=== PATIENT | male | born 1970 | race Caucasian/White ===

== ENCOUNTER 2023-10-08 03:52 | Emergency (ER) | payer SELFPAY ==
[2023-10-08 04:15] LABS: BASOPHILS ABSOLUTE AUTO 0.03 K/uL (0.00-0.20); BASOPHILS PERCENT AUTO 0.2 % (0.0-1.0); EOSINOPHILS ABSOLUTE AUTO 0.16 K/uL (0.00-0.45); EOSINOPHILS PERCENT AUTO 1.3 % (0.0-6.0); HEMATOCRIT 44.5 % (42.0-52.0); HEMOGLOBIN 15.2 g/dL (14.0-18.0); IMMATURE GRAN ABSOLUTE AUTO 0.04 K/uL (0.00-0.05); IMMATURE GRAN PERCENT AUTO 0.3 % (0.0-0.4); LYMPHOCYTES ABSOLUTE AUTO 1.67 K/uL (1.00-4.80); LYMPHOCYTES PERCENT AUTO 13.1 % (24.0-44.0); MEAN CORPUSCULAR HGB CONC 34.2 g/dL (32.0-36.0); MEAN CORPUSCULAR VOLUME 87.8 fL (83.0-99.0); MONOCYTES PERCENT AUTO 5.5 % (0.0-8.0); NEUTROPHILS ABSOLUTE AUTO 10.19 K/uL (1.80-7.70); NEUTROPHILS PERCENT AUTO 79.6 % (41.0-71.0); PLATELET COUNT,PLT 272 K/uL (150-400); RED BLOOD CELL COUNT 5.07 M/uL (4.52-5.90); WHITE BLOOD CELL COUNT,WBC 12.79 K/uL (3.9-11.3)
[2023-10-08] MEDS: Sodium Chloride 0.9% 1,000 ML IV STA (04:20)
[2023-10-08 04:38] LABS: A/G RATIO 0.9 (0.9-1.6); ALBUMIN 3.5 g/dL (3.4-5.0); BILIRUBIN TOTAL 0.8 mg/dL (0.2-1.0); CARBON DIOXIDE,CO2 31.1 mmol/L (21.0-32.0); CREATININE 0.7 mg/dL (0.8-1.3); EST CRCL DRUG DOSING (CG) 126.01 mL/min; PROTEIN TOTAL,TP 7.3 g/dL (6.4-8.2)
== END 2023-10-08 05:59 | disposition home or self-care (01) ==
LOC: MW.ED 03:52
DX: R10.13 Epigastric pain (principal); I10 Essential (primary) hypertension; Z91.041 Radiographic dye allergy status; Z91.013 Allergy to seafood; Z79.85 Long-term (current) use of injectable non-insulin antidiabetic drugs; Z75.8 Other problems related to medical facilities and other health care
CPT/HCPCS: 36415; 76705; 80053; 83690; 84484; 85025; 93005; 96360; 99284; J7030; 93010; 99282